=== PATIENT | male | born 1950 | race Caucasian/White ===

== ENCOUNTER → 2020-10-25 13:21 | Outpatient (CLI) | payer MEDICARE, SELFPAY | PROVIDERS: Referring Provider Urology; Visit Provider Urology | DX: N39.0 Urinary tract infection, site not specified (principal); R31.0 Gross hematuria; R35.0 Frequency of micturition; R30.0 Dysuria | CPT/HCPCS: 51798; 81002; 87086; 99215 ==

== ENCOUNTER → 2020-11-15 14:21 | Outpatient (CLI) | payer MEDICARE, SELFPAY ==
--- NOTE | 2020-11-15 14:34 | DI.CT.S_ITS ---
PROCEDURE: CT ABDOMEN PELVIS WO/W CON INDICATIONS: Dysuria, UTI, frequency, hematuria TECHNIQUE: Optional 5 mm thick noncontrast images acquired from the diaphragm to the symphysis pubis. After the administration of intravenous contrast, 5 mm thick images acquired from the diaphragm to the symphysis pubis after a 10-minute delay. 2 mm thick coronal and sagittal reformats were then performed of the kidneys and ureters. For radiation dose reduction, the following was used: automated exposure control, adjustment of mA and/or kV according to patient size. COMPARISON: None. FINDINGS: Image quality: Excellent. Lung bases: Lung bases are clear. Heart size is normal. Urinary system: Both kidneys are normal in size, without hydronephrosis or nephrolithiasis on pre-contrast images. Multiple small left peripelvic renal cysts. Small right renal cortical cyst. No perinephric fat stranding. There is normal bilateral renal enhancement. Renal calyces appear normal in morphology when filled with contrast. Opacified portions of both ureters demonstrate normal caliber. 3.5, 1.6 and 0.7 centimeter calcified urinary bladder stones are noted. 2.3 centimeter right ureterocele is noted. Heterogeneously enhancing mass is noted in the base of the urinary bladder that measures approximately 6.4 x 7.3 x 1 3.5 centimeters highly suspicious for urothelial carcinoma. There is diffuse irregular thickening of the urinary bladder wall which could represent infiltrating neoplasm versus chronic inflammation. Small bilateral partial visualized scrotal hydroceles. Other solid organs: Liver is normal in size and enhancement. Gallbladder is within normal limits. Biliary system is non dilated. Pancreas enhances normally. Spleen is normal in size and enhancement. No adrenal nodules. Peritoneum and bowel: Bowel loops demonstrate normal wall thickness and caliber. Scattered colonic diverticuli without evidence of diverticulitis.No free fluid or air. Small 5 millimeter appendicoliths noted in the appendix. The appendix is otherwise normal in appearance. Nodes and vessels: No retroperitoneal or mesenteric adenopathy by size criteria. Aortic stent graft is noted. Abdominal wall: Small fat containing periumbilical hernia. Pelvis: No pathologic free pelvic fluid. No inguinal hernias or adenopathy. Bones: No suspicious bony lesions. No vertebral body compression fractures. Spine degenerative disc disease and facet arthropathy. Grade 1 L5-S1 isthmic spondylolisthesis. IMPRESSION: 1. Large heterogeneously enhancing mass in the base of the urinary bladder highly suspicious for urothelial carcinoma. 2. Multiple calcified urinary bladder stones. 3. No hydronephrosis. 4. Colonic diverticulosis without evidence of diverticulitis. 5. Status post aortic stent graft placement. Dictated by: Cristiane Melendez MD, PhD on 11/15/2020 at 15:21 Approved by: Cristiane Melendez MD, PhD on 11/15/2020 at 15:29
== END ==
PROVIDERS: PCP Family Medicine; Referring Provider Urology; Visit Provider Urology
DX: R30.0 Dysuria (principal); R35.0 Frequency of micturition; R31.0 Gross hematuria; N39.0 Urinary tract infection, site not specified; N32.9 Bladder disorder, unspecified; N21.0 Calculus in bladder; K57.90 Diverticulosis of intestine, part unspecified, without perforation or abscess without bleeding; K42.9 Umbilical hernia without obstruction or gangrene
CPT/HCPCS: 51798; 52000; 74178; 81002; 99213

== ENCOUNTER → 2020-11-22 09:13 | Outpatient (CLI) | payer MEDICARE, SELFPAY ==
[2020-11-22 20:50] LABS: COVID19 - ORCAS (NP or Nasal) Negative (Negative)
== END ==
PROVIDERS: PCP Family Medicine; Visit Provider Physician Assistant
DX: Z20.822 Contact with and (suspected) exposure to COVID-19 (principal)
CPT/HCPCS: C9803; U0003

== ENCOUNTER 2020-11-24 11:13 | Day surgery (SDC) | payer MEDICARE, SELFPAY ==
[2020-11-17 08:01] VITALS: BMI 25.7
[2020-11-24] VITALS (9 sets, daily range): BP systolic 107–139; BP diastolic 58–89; PULSE 69–97; RESP 10–17; TEMP 36.2–36.6; O2SAT 91–99; BMI 25.7
[2020-11-24] MEDS: LACTATED RINGERS 1,000 ML 42 ML IV ×2 (11:28→15:54)
--- NOTE | 2020-11-24 13:28 | PM.PREOP ---
Pre-operative Note COVID-19 COVID-19 status: Negative Result date/Date tested (Pos, Neg/Pending): 11/22/20 Interval Note History & Physical reviewed/Exam performed by Physician: Yes Changes to H&P: No
[2020-11-24] MEDS: CEFAZOLIN 1 GM VIAL 2 GM IV (14:10)
--- NOTE | 2020-11-24 14:19 | SUR.OPER ---
Lithotomy on padded OR bed, head on pillow, arms secured on padded arm boards at <90 degrees abduction. Legs secured in padded yellow fins stirrups.
[2020-11-24] MEDS: BELLADONNA/OPIUM SUPPOSITORIES 1 EACH PR (14:25)
[2020-11-24] MEDS: LIDOCAINE 2% (GLYDO) 6 ML GEL TOP (14:30)
--- NOTE | 2020-11-24 18:27 | PM.OP.1 ---
Procedure & Clinicians Procedure: Laser cystolitholapaxy Same procedure as scheduled: Yes Indications: This is a 70-year-old male who complained of gross hematuria, frequency, urgency, dysuria workup has revealed multiple bladder stones and he presents at this time for cysto litholapaxy. Surgeon: Nabor Rosales Click Yes if Unassisted: Yes Anesthesia Type: General Operative Notes Findings: Urethra normal to the prostatic fossa which shows marked obstructive character elongation and what appeared to be a large median lobe. Patient also had what appeared to be 3 stones in the bladder which were exceedingly hard in composition. This required extended time. Patient also has a right-sided diverticula which was discovered and appeared to have stones and or fragments in it. I did not feel it was safe to at the time of visualization to try and extract the stones or to break them up; this was due to the ?snow globe effect ?of the dust from breaking up the other stones. We will see if they clear in if not will come back on another day and work to rid him the stones. Likely 95% of his stone burden was cleared. There were no other mucosal lesions. Ureteral orifices were not directly visualized. Closure Type: not applicable Specimen(s): other (Stone fragments) Applied: catheter Estimated Blood Loss (mL): 50 Blood products transfused: none Procedure in detail: After informed consent was obtained, the patient was identified and taken to the operating room where he was placed in a supine position on the table. Anesthesia was induced and maintained. The patient was then placed in the lithotomy position and prepped and draped in a sterile fashion. With prepping and draping accomplished and after time-out the laser resectoscope was inserted under direct vision. Laser fiber was inserted and the stone was sequentially fragmented, carved up, treated with the laser. This was alternated with using the mechanical lithotrite. As noted above the stone was found to be very hard and required extended time to be treated. With the stone broken up fragments were evacuated via the scope. Several larger fragments were once again seen and these were broken up with a mechanical lithotrite. It was at this point with most of the stone fragments evacuated that the diverticula was discovered. It was gently explored and again with the visualization present I did not feel was safe to move forward and trying to treat the stone material noted within the diverticula. A few fragments were irrigated out. At this point with the majority of the stones removed, the bladder was drained, the scope was removed, and a 24 Sinhala 5 cc Franco catheter was passed through the urethra prostate and into the bladder. The balloon was filled with 10 cc of sterile water and placed to gravity drainage. Patient was awakened taken to the postanesthesia care unit having tolerated the procedure well. Patient will be discharged to home with his Franco catheter in place. He will be given Pyridium and oxybutynin. His significant other was called in instructions given to her. Complications: none Post-operative Condition: stable Disposition: PACU Plan for aftercare: Patient to be discharged to home with Franco catheter leg bag and night bag.
[2020-11-24] MEDS: PHENAZOPYRIDINE 100 MG TABLET 200 MG PO (18:45)
[2020-11-24] MEDS: OXYBUTYNIN 5 MG TABLET PO (18:46)
--- NOTE | 2020-11-24 21:11 | SUR.PHASEII ---
Patient ready to leave and getting dressed when all of a sudden he threw up everything. Had him lay down to rest for a bit before sending home. Was feeling much better when released
[2020-12-05 12:46] LABS: Calcium carbonate 10 % (.); Magnesium ammon phos 90 % (.); Size 7x5 mm (.)
== END 2020-11-24 19:25 | disposition home or self-care (01) ==
PROVIDERS: PCP Family Medicine; Referring Provider Urology; Visit Provider Urology
PROC: 0TCB8ZZ Extirpation of Matter from Bladder, Via Natural or Artificial Opening Endoscopic (ICD-10-PCS; CPT 52318; principal; 2020-11-24 12:15)
DX: N21.0 Calculus in bladder (principal); Z87.440 Personal history of urinary (tract) infections; N40.1 Benign prostatic hyperplasia with lower urinary tract symptoms; R35.0 Frequency of micturition
CPT/HCPCS: 52318; 82365; 82962; J0690; J2250; J2405; J2704; J3010

== ENCOUNTER → 2020-12-15 12:06 | Outpatient (CLI) | payer MEDICARE, SELFPAY ==
--- NOTE | 2020-12-15 12:09 | DI.RAD.S_ITS ---
PROCEDURE: XR KUB INDICATIONS: Bladder calculus recently treated any residual TECHNIQUE: One view of the abdomen acquired. COMPARISON: [facility], CT, CT ABDOMEN PELVIS WO/W CON, 11/15/2020, 14:35. FINDINGS: Surgical changes and devices: Aortoiliac stent graft redemonstrated. Bowel: Bowel gas pattern is normal. Soft tissues: No suspicious abdominal calcifications. Visualized solid organ contours appear normal in size. Multiple bladder calculi present. Bones: No suspicious bony lesions. IMPRESSION: Several bladder calculi, largest measuring up to 1.8 cm which appears similar prior CT scan. Dictated by: Haseeb Newell [facility] Interpreted: Douglas Jones MD on 12/15/2020 at 13:39 Transcribed by: HEBER on 12/15/2020 at 13:40 Approved by: Douglas Jones M.D. on 12/15/2020 at 17:21
== END ==
PROVIDERS: PCP Family Medicine; Referring Provider Urology; Visit Provider Urology
DX: N21.0 Calculus in bladder (principal); R35.0 Frequency of micturition; R31.0 Gross hematuria; N39.0 Urinary tract infection, site not specified
CPT/HCPCS: 74018; 81002; 99215

== ENCOUNTER → 2020-12-30 08:37 | Outpatient (CLI) | payer MEDICARE, SELFPAY ==
[2020-12-30 19:25] LABS: Appearance Urine UA CLOUDY; Bilirubin Urine UA NEGATIVE (NEGATIVE); Color Urine UA YELLOW; Glucose Urine UA NEGATIVE (Negative); Ketones Urine UA NEGATIVE (NEGATIVE); Leukocyte Esterase Urine UA 2+ (NEGATIVE); Nitrite Urine UA POSITIVE (Negative); Occult Blood Urine UA 1+ (Negative); Protein Urine UA TRACE (Negative); Urobilinogen Urine UA 0.2 E.U./dL (0.2)
[2020-12-30 19:34] LABS: RBC Urine 0-1/HPF (0-5/HPF); Squamous Epithelial Cell Urine 0-1 /HPF (0-5/HPF); WBC Urine 30-100/HPF (0-5/HPF)
[2020-12-30 19:35] LABS: Bacteria Urine Many (>30); Culture Indicated Urine Specimen Cultured
== END ==
PROVIDERS: PCP Family Medicine; Visit Provider Urology
DX: N39.0 Urinary tract infection, site not specified (principal)
CPT/HCPCS: 81001; 87077; 87086; 87186

== ENCOUNTER → 2021-01-04 08:07 | Outpatient (CLI) | payer MEDICARE, SELFPAY ==
[2021-01-04 20:40] LABS: COVID19 - ORCAS (NP or Nasal) Negative (Negative)
== END ==
PROVIDERS: PCP Family Medicine; Visit Provider Physician Assistant Medical
DX: Z20.822 Contact with and (suspected) exposure to COVID-19 (principal)
CPT/HCPCS: C9803; U0003

== ENCOUNTER 2021-01-05 08:46 | Day surgery (SDC) | payer MEDICARE, SELFPAY ==
[2021-01-05 09:04] VITALS: BP 114/79; PULSE 79; RESP 16; TEMP 36.6; O2SAT 97; BMI 26.4
--- NOTE | 2021-01-05 09:10 | PM.PREOP ---
Pre-operative Note COVID-19 COVID-19 status: Negative Result date/Date tested (Pos, Neg/Pending): 01/04/21 Interval Note History & Physical reviewed/Exam performed by Physician: Yes Changes to H&P: No
[2021-01-05] MEDS: LACTATED RINGERS 1,000 ML 42 ML IV (09:11)
--- NOTE | 2021-01-05 09:20 | SUR.OPER ---
Lithotomy on padded OR bed, head on pillow, arms secured on padded arm boards at <90 degrees abduction. Legs secured in padded yellow fins stirrups.
[2021-01-05] MEDS: CIPROFLOXACIN 400 MG/200 ML PIGGYBACK 200 MG IV (09:40)
[2021-01-05] MEDS: BELLADONNA/OPIUM SUPPOSITORIES 1 EACH PR (10:19)
--- NOTE | 2021-01-05 10:28 | P.OP_ITS ---
Procedure & Clinicians Procedure: Cystoscopy with mechanical litholapaxy and evacuation of stone fragments. Same procedure as scheduled: Yes Indications: Very pleasant 70-year-old male who originally presented with several large bladder calculi. These were treated with laser litholapaxy. He has failed to clear his fragments given the presence of a right-sided large bladder diverticula where a pool of fragments sequestered. He presents today to be rid of the stones. Surgeon: Nabor Rosales Click Yes if Unassisted: Yes Anesthesia Type: General Operative Notes Findings: Urethra normal to the prostatic fossa which shows moderate approaching severe obstructive character with a large median lobe. Bladder has severe t rabeculations cellules webbing and a large right posterior diverticulum which had many stone fragments. There was also a small to moderate sized stone which had been untreated which was easily broken with the mechanical lithotrite. At the end of the procedure all large stone fragments appeared to be have been removed. There were no other abnormalities in the bladder urethra or prostate. Closure Type: not applicable Specimen(s): other (Stone fragments sent for composition analysis.) Estimated Blood Loss (mL): 5 Blood products transfused: none Procedure in detail: Procedure in detail: After informed consent was obtained, the patient was identified and brought to the operating room. Patient was placed in a supine position on the operating room table and anesthesia was induced and maintained. Patient was then placed in the lithotomy position, prepped with a sterilizing prepped and draped in a sterile fashion. After prepping, draping and ensuring an adequate level of anesthesia a 22 Nauruan cystoscope was passed through the urethra, prostate and into the bladder. Cystoscopy was then performed with the 70 and 30 degree lens. With the stone fragments identified a mechanical lithotrite was then inserted and stones grasped removed from the diverticula and crushed. Sequentially the stones were removed and crushed, the moderate-sized stone was identified and also broken up. These maneuvers were continued till all fragments were of a size which would passed through the scope. An [employer] evacuator was then used to evacuate some of the stones. Some stones were grasped and removed from the bladder and remainder work ?washed out?. Cystoscopy was then again performed and all large stone fragments appeared absent. At this point the bladder was drained, the scope was removed and the patient was awakened. He was taken to the postanesthesia care unit having tolerated the procedure well, the patient will follow-up after discharge in my office in approximately 10-14 days. There were no complications. Complications: none Post-operative Condition: stable Disposition: PACU Plan for aftercare: Patient to be discharged to home to follow-up in my office in 10-14 days.
[2021-01-05 10:32] VITALS: BP 83/51; PULSE 72; RESP 12; TEMP 36.2; O2SAT 95
[2021-01-05 10:38] VITALS: BP 81/53; PULSE 70; RESP 12; TEMP 36.2; O2SAT 95
[2021-01-05 10:42] VITALS: BP 92/60; PULSE 75; RESP 13; O2SAT 98
[2021-01-05 10:47] VITALS: BP 101/70; PULSE 68; RESP 12; O2SAT 99
[2021-01-05 11:00] VITALS: BP 108/70; PULSE 60; RESP 13; TEMP 36.1; O2SAT 100
--- NOTE | 2021-01-05 11:11 | SUR.PHASEII ---
dc instructions given to patient. questions invited and answered. states understanding. no rx given. denies pain or nausea. awake. converses appropriately with staff. [place] given for [facility].
[2021-01-11 13:45] LABS: Ca oxalate monohydr 10 % (.); Carbonate Apatite 20 % (.); Magnesium ammon phos 70 % (.); Size 5x4 mm (.)
== END 2021-01-05 11:33 | disposition home or self-care (01) ==
PROVIDERS: PCP Family Medicine; Referring Provider Urology; Visit Provider Urology
PROC: (CPT 52317; principal; 2021-01-05 10:45)
DX: N21.0 Calculus in bladder (principal); N32.3 Diverticulum of bladder; I25.10 Atherosclerotic heart disease of native coronary artery without angina pectoris; I73.9 Peripheral vascular disease, unspecified; G62.9 Polyneuropathy, unspecified
CPT/HCPCS: 52317; 82365; J0744; J1100; J2250; J2405; J2704; J3010

== ENCOUNTER → 2021-01-09 10:35 | Outpatient (CLI) | payer MEDICARE, SELFPAY ==
[2021-01-09 19:15] LABS: Appearance Urine UA CLEAR; Bilirubin Urine UA NEGATIVE (NEGATIVE); Color Urine UA YELLOW; Glucose Urine UA NEGATIVE (Negative); Ketones Urine UA NEGATIVE (NEGATIVE); Leukocyte Esterase Urine UA 1+ (NEGATIVE); Nitrite Urine UA NEGATIVE (Negative); Occult Blood Urine UA NEGATIVE (Negative); Protein Urine UA NEGATIVE (Negative); Urobilinogen Urine UA 0.2 E.U./dL (0.2)
[2021-01-09 19:45] LABS: Bacteria Urine None Seen; Culture Indicated Urine Specimen Cultured; RBC Urine 0-1/HPF (0-5/HPF); Squamous Epithelial Cell Urine None Seen (0-5/HPF); WBC Urine 5-10/HPF (0-5/HPF)
== END ==
PROVIDERS: PCP Family Medicine; Visit Provider Urology
DX: N21.0 Calculus in bladder (principal); R30.0 Dysuria; R35.0 Frequency of micturition
CPT/HCPCS: 81001; 87086

== ENCOUNTER → 2021-02-01 09:28 | Outpatient (CLI) | payer MEDICARE, SELFPAY ==
[2021-02-01 21:07] LABS: COVID19 - ORCAS (NP or Nasal) Negative (Negative)
== END ==
PROVIDERS: PCP Family Medicine; Visit Provider Physician Assistant
DX: Z20.822 Contact with and (suspected) exposure to COVID-19 (principal)
CPT/HCPCS: C9803; U0003

== ENCOUNTER → 2022-12-13 12:13 | Outpatient (CLI) | payer MEDICARE, SELFPAY | PROVIDERS: PCP Family Medicine; Visit Provider Urology | DX: N21.0 Calculus in bladder (principal); N39.0 Urinary tract infection, site not specified; R30.0 Dysuria; R31.0 Gross hematuria; R35.0 Frequency of micturition | CPT/HCPCS: 87086 ==

== ENCOUNTER → 2022-12-13 12:56 | Outpatient (CLI) | payer MEDICARE, SELFPAY ==
[2022-12-13 13:53] LABS: BUN Creatinine Ratio 20.5 (6-22); Blood Urea Nitrogen 24 mg/dL (9-20); Calcium 9.2 mg/dL (8.4-10.2); Carbon Dioxide 29 mmol/L (22-32); Chloride 105 mmol/L (98-107); Estimated Glomerular Filt Rate > 60 mL/min (>60); Glucose 95 mg/dL (80-110); Sodium 139 mmol/L (137-145)
[2022-12-13 13:56] LABS: HEMOLYSIS 61 (0-50); Potassium 4.5 mmol/L (3.4-5.1)
== END ==
PROVIDERS: PCP Family Medicine; Referring Provider Urology; Visit Provider Urology
DX: N30.01 Acute cystitis with hematuria; N21.0 Calculus in bladder; R30.0 Dysuria; R35.0 Frequency of micturition
CPT/HCPCS: 36415; 80048; 81002; 87077; 87086; 87186; 99214

== ENCOUNTER → 2023-01-02 10:53 | Outpatient (CLI) | payer MEDICARE, SELFPAY ==
--- NOTE | 2023-01-02 11:09 | DI.CT.S_ITS ---
PROCEDURE: CT ABDOMEN PELVIS WO/W CON INDICATIONS: Recurrent urinary tract infection/bladder calculi TECHNIQUE: Optional 5 mm thick noncontrast images acquired from the diaphragm to the symphysis pubis. After the administration of intravenous contrast, 5 mm thick images acquired from the diaphragm to the symphysis pubis after a 10-minute delay. 2 mm thick coronal and sagittal reformats were then performed of the kidneys and ureters. For radiation dose reduction, the following was used: automated exposure control, adjustment of mA and/or kV according to patient size. COMPARISON: [facility], CT, CT ABDOMEN PELVIS WO/W CON, 11/15/2020, 14:35. FINDINGS: Lung bases: No pleural effusion. 6 mm ground-glass nodule at the lingula (5/4). Urinary system: No renal or ureteral stone demonstrated. A 1.0 cm stone is present within a urinary bladder diverticulum, internal density 1348 Hounsfield units. Few renal cortical and renal sinus cysts present. No definite hydronephrosis. No definite evidence of a solid renal mass. The opacified portions of the renal collecting systems and ureters are unremarkable without a definite filling defect demonstrated. Diffuse wall thickening of the urinary bladder is present and the bladder appears trabeculated. Prostatomegaly. Other solid organs: Liver is normal in size and enhancement. Gallbladder is unremarkable . Biliary system is non dilated. Pancreas enhances normally. Spleen is normal in size and enhancement. No adrenal nodules. Peritoneum and bowel: No bowel obstruction. No free air or substantial free fluid. Moderate predominantly sigmoid colonic diverticulosis without evidence of acute diverticulitis. Nodes and vessels: No retroperitoneal or mesenteric adenopathy by size criteria. Abdominal aortic aneurysm redemonstrated, aneurysm measures up to 3.3 cm, prior aorto bi-iliac stent grafting as before. 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 Pelvis: No pathologic free pelvic fluid. No adenopathy. Bones: Multilevel degenerative change of the visualized spine. L5-S1 pars defects with anterolisthesis L5 on S1. IMPRESSION: 1. A 1.0 cm stone is present within a urinary bladder diverticulum. 2. No renal or ureteral stone identified. 3. Bladder wall appears thickened and the bladder appears trabeculated, which could be seen in the setting of chronic outlet obstruction. 4. A 6 mm ground-glass pulmonary nodule is present at the lingula. Follow-up chest CT is recommended in 6-12 months per Fleischner society guidelines. Dictated by: Dameon Vasquez M.D. on 01/02/2023 at 11:52 Approved by: Dameon Vasquez M.D. on 01/02/2023 at 12:13
== END ==
PROVIDERS: PCP Family Medicine; Referring Provider Urology; Visit Provider Urology
DX: N39.0 Urinary tract infection, site not specified (principal); N21.0 Calculus in bladder; R91.1 Solitary pulmonary nodule; R30.0 Dysuria; R35.0 Frequency of micturition; R31.0 Gross hematuria
CPT/HCPCS: 51798; 52000; 74178; 81002; 99214

== ENCOUNTER → 2023-01-16 15:39 | Outpatient (CLI) | payer MEDICARE, SELFPAY | PROVIDERS: PCP Family Medicine; Visit Provider Urology | DX: N39.0 Urinary tract infection, site not specified (principal); N40.1 Benign prostatic hyperplasia with lower urinary tract symptoms; R33.8 Other retention of urine; N21.0 Calculus in bladder; N32.3 Diverticulum of bladder; R39.9 Unspecified symptoms and signs involving the genitourinary system | CPT/HCPCS: 51702; 51798; 76872; 81002; 87086; 99214 ==

== ENCOUNTER → 2023-01-24 14:27 | Outpatient (CLI) | payer MEDICARE, SELFPAY ==
[2023-01-24 19:11] LABS: Appearance Urine UA CLEAR; Bilirubin Urine UA NEGATIVE (NEGATIVE); Color Urine UA YELLOW; Glucose Urine UA NEGATIVE (Negative); Ketones Urine UA NEGATIVE (NEGATIVE); Leukocyte Esterase Urine UA TRACE (NEGATIVE); Nitrite Urine UA NEGATIVE (Negative); Occult Blood Urine UA 2+ (Negative); Protein Urine UA TRACE (Negative); Specific Gravity Urine UA 1.025 (1.000-1.035); Urobilinogen Urine UA 0.2 E.U./dL (0.2)
[2023-01-24 19:46] LABS: Bacteria Urine Few (2-10); Culture Indicated Urine Specimen Cultured; RBC Urine 30-100/HPF (0-5/HPF); Squamous Epithelial Cell Urine 0-1 /HPF (0-5/HPF); WBC Urine 1-5/HPF (0-5/HPF)
== END ==
PROVIDERS: PCP Family Medicine; Visit Provider Urology
DX: N30.00 Acute cystitis without hematuria (principal); N21.0 Calculus in bladder; R30.0 Dysuria; R35.0 Frequency of micturition; R31.0 Gross hematuria; N39.0 Urinary tract infection, site not specified
CPT/HCPCS: 81001; 87077; 87086; 87186

== ENCOUNTER 2023-01-28 06:49 | Day surgery (SDC) | payer MEDICARE, SELFPAY ==
[2023-01-28 07:04] VITALS: BMI 24.1
[2023-01-28 07:20] VITALS: BP 112/75; PULSE 86; RESP 16; TEMP 36.7; O2SAT 94
[2023-01-28] MEDS: LACTATED RINGERS 1,000 ML 21 ML IV (07:23)
[2023-01-28] MEDS: ACETAMINOPHEN 325 MG TABLET 975 MG PO (07:23)
[2023-01-28 07:27] LABS: COVID19 -Nasal RAPID Negative (Negative)
[2023-01-28] MEDS: ALBUTEROL/IPRATROPIUM 3 ML AMPUL INH (07:32)
--- NOTE | 2023-01-28 08:05 | SUR.PREOP ---
Surgery cancelled per Dr. Rosales. Patient notified by . IV discontinued. Patient dressed independently.
== END 2023-01-28 07:00 | disposition home or self-care (01) ==
LOC: OR 06:50
PROVIDERS: PCP Family Medicine; Referring Provider Urology; Visit Provider Urology
DX: N40.1 Benign prostatic hyperplasia with lower urinary tract symptoms (principal); R33.9 Retention of urine, unspecified; Z53.09 Procedure and treatment not carried out because of other contraindication
CPT/HCPCS: 52649; 87635; J1100; J2405; J2704; J3010

== ENCOUNTER → 2023-01-31 10:45 | Outpatient (CLI) | payer MEDICARE, SELFPAY ==
[2023-01-31 20:12] LABS: Appearance Urine UA CLEAR; Bilirubin Urine UA NEGATIVE (NEGATIVE); Color Urine UA YELLOW; Glucose Urine UA NEGATIVE (Negative); Ketones Urine UA NEGATIVE (NEGATIVE); Leukocyte Esterase Urine UA 1+ (NEGATIVE); Nitrite Urine UA NEGATIVE (Negative); Occult Blood Urine UA 1+ (Negative); Protein Urine UA 1+ (Negative); Specific Gravity Urine UA <=1.005 (1.000-1.035); Urobilinogen Urine UA 0.2 E.U./dL (0.2); pH Urine UA 5.5 (4.5-8.0)
[2023-01-31 20:21] LABS: Amorphous Sediment Urine 1+; Bacteria Urine Few (2-10); Culture Indicated Urine Specimen Cultured; RBC Urine 0-1/HPF (0-5/HPF); Squamous Epithelial Cell Urine 0-1 /HPF (0-5/HPF); WBC Urine 5-10/HPF (0-5/HPF)
== END ==
PROVIDERS: PCP Family Medicine; Visit Provider Urology
DX: R33.9 Retention of urine, unspecified (principal); R39.9 Unspecified symptoms and signs involving the genitourinary system; N32.3 Diverticulum of bladder; N30.00 Acute cystitis without hematuria; N21.0 Calculus in bladder; R30.0 Dysuria; R35.0 Frequency of micturition; R31.0 Gross hematuria; N39.0 Urinary tract infection, site not specified; R33.8 Other retention of urine; N40.1 Benign prostatic hyperplasia with lower urinary tract symptoms
CPT/HCPCS: 81001; 87086

== ENCOUNTER 2023-02-05 06:48 | Day surgery (SDC) | payer MEDICARE, SELFPAY ==
[2023-01-30 12:17] VITALS: BMI 25.7
[2023-02-05 07:23] VITALS: BP 108/72; PULSE 102; RESP 16; TEMP 36.4; O2SAT 94; BMI 25.7
[2023-02-05] MEDS: LACTATED RINGERS 1,000 ML 21 ML IV (07:38)
--- NOTE | 2023-02-05 07:41 | PM.PREOP ---
Pre-operative Note COVID-19 COVID-19 status: Not tested Interval Note History & Physical reviewed/Exam performed by Physician: Yes Changes to H&P: No
[2023-02-05] MEDS: CIPROFLOXACIN 400 MG/200 ML PIGGYBACK 200 MG IV (07:55)
--- NOTE | 2023-02-05 08:12 | SUR.OPER ---
Lithotomy on padded OR bed, head on pillow, arms secured on padded arm boards at <90 degrees abduction. Legs secured in padded yellow fins stirrups.
--- NOTE | 2023-02-05 10:22 | P.OP_ITS ---
Procedure & Clinicians Procedure: Photo vaporization/laser enucleation of prostate Same procedure as scheduled: Yes Indications: This 72-year-old male presented with complaints of lower urinary tract symptoms, bladder outlet obstruction and benign prostatic hyperplasia. In the distant past he would had a bladder calculus. Which had been treated and he began to have of late worsening outlet obstructive symptoms. And eventually went into urinary retention patient did have at cystoscopy a large median lobe prostate was measured itself at 42 g. And there is a bladder calculus and a diverticula. Patient is aware that our focus will be on the prostate today and that we will likely take care of the stone on another date. Presents this time for photo vaporization/laser enucleation of the prostate to eliminate his urinary retention and outlet obstructive symptoms. Surgeon: Nabor Rosales Click Yes if Unassisted: Yes Anesthesia Type: General Operative Notes Findings: Urethral meatus is normal urethra is normal along its length with normal mucosa of the sphincter as well coapted. The prostate exhibits trilobar obstructive character with a large median lobe. Within the bladder there is on the patient's right floor of the bladder diverticula with the stone in place. The stone is approximately 2-1/2 to perhaps 3 cm in diameter. The ureteral orifices in normal position with clear efflux there certain evacuation cellules. At the end of the procedure the prostatic fossa was widely patent patent and the patient had a vigorous stream total laser time was 38 minutes 44 seconds total laser energy [id number] joules. A [address] Franco catheter was left in place with 15 cc in the balloon. Closure Type: not applicable Specimen(s): none sent Prosthetic devices, grafts, tissues, transplants, or devices: Twenty-two Australian [address] Franco catheter 15 cc in the balloon. Applied: catheter (See above) Estimated Blood Loss (mL): 50 Blood products transfused: none Procedure in detail: Procedure in detail: After informed consent was obtained, the patient was identified and brought to the operating room where he was placed in a supine position on the table and anesthesia was induced to maintain. Ensuring an adequate level of anesthesia the patient was transitioned to the lithotomy position where he was prepped, draped, prepared for Transurethral procedure. After prepping draping assuring an adequate level of anesthesia time-out was performed and it was not sure that antibiotics had been given. With this accomplished the laser resectoscope was inserted through the urethra prostate and into the bladder under direct vision. The laser fiber was inserted and the lateral lobes were marked at the level of the verumontanum as the distal extent of resection. Flow channels were then made in the sulci lateral to the median lobe from the bladder neck to the verumontanum. The median lobe was then enucleated and undermined and then sequentially vaporized. Careful attention was paid to the position of the ureteral orifices as this went on. As this progressed the fiber began to work less well and was exchanged for a new fiber. Attention was then turned to the lateral lobes which were also vaporized down to the prostate was wide open. There were some clots that had collected in the bladder and so the laser was placed on standby the laser scope removed and replaced with the cystoscope which was then used to evacuate the small clots in the bottom of the bladder the total volume was approximately 50 cc. With this done it was apparent there was a little residual tissue that needed to be lasered on the left lateral aspect of the prostate so the laser resectoscope was reinserted the laser fiber reinserted and this was vaporized down again till the prostate was wide open. With the laser and standby in the bladder full the scope was removed and the patient was observed to have a vigorous stream. Twenty-two Australian 5 cc Franco catheter was then passed with the aid of a catheter guide end of the bladder where the balloon was filled with 15 cc of sterile katya er. This was placed to gravity drainage the patient was awakened having tolerated the procedure well. He was transferred to the postanesthesia care unit for recovery there were no complications. Complications: none Post-operative Condition: stable Disposition: PACU Plan for aftercare: Discharge to home with Franco catheter follow-up my office in the morning for catheter removal.
[2023-02-05 10:25] VITALS: BP 123/91; PULSE 71; RESP 158; TEMP 36.1; O2SAT 93
[2023-02-05 10:30] VITALS: BP 119/81; PULSE 63; RESP 12; O2SAT 93
[2023-02-05 10:35] VITALS: BP 116/82; PULSE 65; RESP 16; O2SAT 95
[2023-02-05] MEDS: ONDANSETRON 4 MG/2 ML INJ IV (10:46)
[2023-02-05 10:50] VITALS: BP 102/75; PULSE 70; RESP 12; TEMP 36.1; O2SAT 97
== END 2023-02-05 12:06 | disposition home or self-care (01) ==
PROVIDERS: PCP Family Medicine; Referring Provider Urology; Visit Provider Urology
PROC: (CPT 52648; principal; 2023-02-05 07:45)
DX: N40.1 Benign prostatic hyperplasia with lower urinary tract symptoms (principal); N13.8 Other obstructive and reflux uropathy; N21.0 Calculus in bladder; N32.3 Diverticulum of bladder; R33.8 Other retention of urine; R31.0 Gross hematuria; R35.0 Frequency of micturition; Z87.440 Personal history of urinary (tract) infections
CPT/HCPCS: 52649; 82962; J0744; J1100; J2405; J2704; J3010

== ENCOUNTER → 2023-02-19 11:47 | Outpatient (CLI) | payer MEDICARE, SELFPAY | PROVIDERS: PCP Family Medicine; Visit Provider Urology | DX: N21.0 Calculus in bladder (principal); N32.3 Diverticulum of bladder; R39.9 Unspecified symptoms and signs involving the genitourinary system | CPT/HCPCS: 51798; 81002; 87077; 87086; 87186 ==

== ENCOUNTER → 2023-04-01 10:35 | Outpatient (CLI) | payer MEDICARE, SELFPAY ==
--- NOTE | 2023-04-01 10:37 | DI.RAD.S_ITS ---
PROCEDURE: XR KUB INDICATIONS: Follow-up urinary calculi TECHNIQUE: One view of the abdomen acquired. COMPARISON: [facility], CT, CT ABDOMEN PELVIS WO/W CON, 01/02/2023, 11:00. [facility]), CR, XR KUB, 01/09/2021, 11:10. [facility], CR, XR KUB, 12/15/2020, 12:14. FINDINGS: Surgical changes and devices: Aorto bi-iliac stent grafts in place. Bowel: Bowel gas pattern is normal. Soft tissues: Calcification projecting over the right pelvis measuring 14 millimeters Visualized solid organ contours appear normal in size. Bones: No suspicious bony lesions. IMPRESSION: Calcification projecting over the right pelvis measuring 14 millimeters, may correlate to bladder diverticular calcifications seen on prior CT. No other suspicious calcifications are seen. Dictated by: Lawrence Stover M.D. on 04/01/2023 at 12:38 Approved by: Lawrence Stover M.D. on 04/01/2023 at 12:40
== END ==
PROVIDERS: PCP Family Medicine; Referring Provider Urology; Visit Provider Urology
DX: N21.0 Calculus in bladder (principal); N20.9 Urinary calculus, unspecified; Z87.442 Personal history of urinary calculi
CPT/HCPCS: 74018

== ENCOUNTER → 2023-04-01 14:09 | Outpatient (CLI) | payer MEDICARE, SELFPAY | PROVIDERS: PCP Family Medicine; Visit Provider Urology | DX: N21.0 Calculus in bladder (principal); N21.9 Calculus of lower urinary tract, unspecified; N39.0 Urinary tract infection, site not specified; R39.9 Unspecified symptoms and signs involving the genitourinary system; R33.9 Retention of urine, unspecified; R35.0 Frequency of micturition; Z87.442 Personal history of urinary calculi | CPT/HCPCS: 51798; 74018; 81002; 87077; 87086; 87186 ==